=== PATIENT | female | born 1935 | race Caucasian/White ===

== ENCOUNTER 2022-03-01 08:00 | Inpatient (IN) ==
[2022-03-01] MEDS ORDERED: FUROSEMIDE 40 MG/4 ML VIAL IV ONE (08:29)
[2022-03-01 08:56] LABS: POC Calcium, Ionized 1.16 (1.16-1.32); POC Creatinine 1.1 (0.6-1.2); POC Potassium 3.3 (3.3-5.1)
[2022-03-01] MEDS ORDERED: IBUPROFEN 200 MG TABLET PO ONE (09:01)
[2022-03-01 09:23] LABS: Basophils # (Auto) 0.08 K/mcL (0.00-0.30); Basophils % (Auto) 1.5 % (0.0-2.0); Eosinophils # (Auto) 0.31 K/mcL (0.00-0.70); Eosinophils % (Auto) 5.6 % (0.0-7.0); Hematocrit 32.1 % (34.1-44.9); Hemoglobin 10.2 g/dL (11.2-15.7); Lymphocytes # (Auto) 1.85 K/mcL (1.50-4.80); Lymphocytes % (Auto) 33.7 % (15.5-49.0); Mean Cell Volume 105.9 fL (80.0-100.0); Mean Corpuscular HGB Conc 31.8 g/dL (31.0-36.0); Mean Platelet Volume 12.2 fL (7.4-10.4); Monocytes # (Auto) 0.87 K/mcL (0.10-0.90); Monocytes % (Auto) 15.8 % (1.0-12.0); Platelet Count 163 K/mcL (140-440); RBC 3.03 M/mcL (3.59-5.38); Red Cell Distribution Width 14.1 % (11.5-14.5); WBC 5.5 K/mcL (4.5-11.0)
--- NOTE | 2022-03-01 09:28 | Emergency Department Note ---
HPI General Chief complaint: Shortness of Breath/Dyspnea Stated complaint: SOB/fluid retention Time Seen by Provider: 03/01/22 08:02 Source: patient Mode of arrival: wheelchair Limitations: no limitations History of Present Illness HPI Narrative: Narrative: Patient presents to the emergency department with chief complaint of lower extremity edema, dyspnea on exertion, fatigue and orthopnea having difficulty sleeping. Patient does have a history of congestive heart failure, coronary artery disease status post CABG several years ago, afib on xarelto. Patient was seen in the emergency department a few days ago she was given an extra dose of IV Lasix she followed up with cardiology yesterday and was added torsemide along with outpatient IV Lasix infusions. Patient still continues to decline feeling fatigued and short of breath, headache. Related Data Home Medications Medication Instructions Recorded Confirmed hydralazine 10 mg tablet 10 mg PO BID 10/29/21 02/28/22 rosuvastatin 20 mg tablet (Crestor) 20 mg PO .q week 10/29/21 02/28/22 Previous Rx's Medication Instructions Recorded levothyroxine 75 mcg tablet See Rx Instructions .Route 09/03/21 .COMPLEX #90 tabs amlodipine 10 mg tablet 10 mg PO QDAY #90 tabs 09/16/21 Donut Cushion See Rx Instructions .Route 10/29/21 .COMPLEX #1 pad atenolol 25 mg tablet 25 mg PO QDAY #90 tabs 11/04/21 gabapentin 100 mg capsule 200 mg PO QHS Back pain #60 caps 11/19/21 isosorbide mononitrate 30 mg 30 mg PO DAILY #90 tabs 12/16/21 tablet,extended release 24 hr nitroglycerin 0.4 mg sublingual See Rx Instructions .Route 12/16/21 tablet .COMPLEX #25 tabs rivaroxaban 15 mg tablet (Xarelto) 15 mg PO QPM AFIB #90 tabs 12/16/21 Allergies Allergy/AdvReac Type Severity Reaction Status Date / Time doxazosin Allergy Severe Anaphylaxis Verified 03/01/22 12:06 Penicillins Allergy Severe ANAPHYLAXIS Verified 03/01/22 12:06 Zolpidem [From Ambien] AdvReac Severe Hallucinati Verified 03/01/22 12:06 ng codeine AdvReac Intermediate Nausea Verified 03/01/22 12:06 Review of Systems ROS ROS Narrative: Narrative: All systems ED: reviewed and negative except as stated. [facility] Narrative Patient History Narrative: Narrative: Medical/Surgical/Family History All Active Problems (Updated 03/01/22 @ 13:12 by Duy Nair MD) CHF (congestive heart failure) (Acute) Anemia (Acute) Macrocytosis (Acute) Acute UTI (Acute) Acute exacerbation of CHF (congestive heart failure) (Acute) Mixed urge and stress incontinence (Acute) Female bladder prolapse, acquired (Acute) Chronic dyspnea (Chronic) Acute pain of left lower extremity (Acute) Viral syndrome (Acute) Acute bronchitis, viral (Acute) Hx of CABG (Acute) Bursitis of right hip (Acute) Bursitis of both hips (Acute) Radiculopathy, lumbar region (Acute) Muscle spasm (Chronic) Lumbar back pain with radiculopathy affecting right lower extremity (Chronic) SOB (shortness of breath) (Chronic) 1st degree AV block (Chronic) AF (atrial fibrillation) (Chronic) H/O acute pancreatitis (Chronic) Hypothyroidism, unspecified (Chronic) Essential (primary) hypertension (Chronic) Sciatica of right side (Chronic) Medication management (Chronic) Fatigue (Chronic) Atrial fibrillation (Chronic) Thoracic back pain (Chronic) Bradycardia (Chronic) CHF (congestive heart failure) (Chronic) History of pancreatitis (Chronic) Hypertension (Chronic) Hypothyroidism (Chronic) Arthritis (Chronic) Bilateral hip pain (Chronic) Gallbladder problem (Chronic) CAD (coronary artery disease) (Chronic) Low back pain (Chronic) Osteoporosis (Chronic) Compression fracture (Chronic) Heart disease (Chronic) Medical History 1st degree AV block AF (atrial fibrillation) Arthritis Atrial fibrillation Bilateral hip pain Bradycardia Bursitis of right hip CAD (coronary artery disease) CHF (congestive heart failure) Compression fracture Essential (primary) hypertension Fatigue First degree AV block Gallbladder problem H/O acute pancreatitis Heart disease History of pancreatitis Hypertension Hypothyroidism Low back pain Lumbar back pain with radiculopathy affecting right lower extremity Improved -03/05/21 Deteriorated 10/29/21 ( onset worsening 08/2021 ER visit) Medication management Muscle spasm Osteoporosis Sciatica of right side SOB (shortness of breath) Thoracic back pain Viral syndrome Surgical History History of bilateral carpal tunnel release (~1986) History of colonoscopy (~2010) History of coronary artery bypass graft x 3 (~2009) History of surgery Vertebroplasty L1 w/sed 08/15/2019 History of tonsillectomy History of total abdominal hysterectomy Family History Mother Colon cancer Sister Dementia Unknown Autoimmune disease Family/Other Hypertension children Migraines children Stroke children Family history of thyroid problem children Other Cancer Heart attack Social History Smoking Status: Never smoker Alcohol Intake Frequency: does not drink Substance Use: does not use Exam Narrative Narrative: Narrative: Vital signs noted General: Awake. Alert. No distress. HEENT: NCAT PERRL EOMI. No conjunctivitis. Membranes moist. Neck: Supple, trachea midline Cardiovascular: Irregularly irregular no murmur. No rubs. No gallops. Respiratory: Slightly tachypneic difficulty speak in full sentences, diminished breath sounds in the bases Gastrointestinal: Soft. No tenderness Musculoskeletal: 2+ pitting edema to the bilateral lower extremities up to the knee Skin: Warm. Dry. No rash Neurologic: Alert and oriented x3 moves all extremities equally and fully, spe ech is fluent face is symmetric General Limitations: no limitations Course Vital Signs Vital signs: Vital Signs Temperature 97.9 F 03/01/22 08:02 Pulse Rate 88 03/01/22 08:02 Respiratory Rate 18 03/01/22 08:02 Blood Pressure 154/57 03/01/22 08:02 Pulse Oximetry (%) 94 03/01/22 08:02 Oxygen Delivery Method 03/01/22 08:02 Temperature 97.5 F 03/01/22 11:55 Pulse Rate 68 03/01/22 11:55 Respiratory Rate 14 03/01/22 11:55 Blood Pressure 153/87 03/01/22 11:55 Pulse Oximetry (%) 94 03/01/22 11:55 Oxygen Delivery Method 03/01/22 11:40 MDM MDM Narrative Medical decision making narrative: Narrative: Patient presents to the emergency department with increased shortness of breath. 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 Patient is not hypoxic she is slightly tachypneic and having difficulty speaking in full sentences. Patient was given 40 mg of IV Lasix. Other differential includes pulmonary embolism however this seems less likely given the patient is on Xarelto and reports that she has been compliant coagulation. Patient is without any acute chest pain her EKG is without findings of acute ischemia and her troponin is reassuring as well. I did speak with Astrid Cervantes who states she ordered IV Lasix infusion, started the patient on torsemide however the patient has failed to improve. She does feel that the patient would likely benefit from inpatient treatment for her congestive heart failure exacerbation. Lab Data Result diagrams: 03/01/22 08:49 Labs: Lab Results 03/01/22 03/01/22 03/01/22 Range/Units 08:49 08:49 08:49 WBC 5.5 (4.5-11.0) K/mcL RBC 3.03 L (3.59-5.38) M/mcL Hgb 10.2 L (11.2-15.7) g/dL Hct 32.1 L (34.1-44.9) % POC Hct (36-48) MCV 105.9 H (80.0-100.0) fL MCH 33.7 (26.0-34.0) pg MCHC 31.8 (31.0-36.0) g/dL RDW 14.1 (11.5-14.5) % Plt Count 163 (140-440) K/mcL MPV 12.2 H (7.4-10.4) fL Immature Gran % (Auto) 0.4 (0.0-0.5) % Neut % (Auto) 43.0 (38.0-78.0) % Lymph % (Auto) 33.7 (15.5-49.0) % [place] % (Auto) 15.8 H (1.0-12.0) % Eos % (Auto) 5.6 (0.0-7.0) % Baso % (Auto) 1.5 (0.0-2.0) % Lymph # (Auto) 1.85 (1.50-4.80) K/mcL [place] # (Auto) 0.87 (0.10-0.90) K/mcL Eos # (Auto) 0.31 (0.00-0.70) K/mcL Baso # (Auto) 0.08 (0.00-0.30) K/mcL Immature Gran # 0.02 (0.00-0.05) K/mcl Absolute Neutrophils 2.36 (1.80-8.00) K/mcL POC Sodium (133-145) POC Potassium (3.3-5.1) POC Chloride (96-108) POC Total CO2 (22-30) POC BUN (6-20) POC Creatinine (0.6-1.2) POC Glucose (70-105) POC WB Ioniz Calcium (1.16-1.32) NT-Pro-B Natriuret Pep 6358.0 H (<450.0) pg/mL TSH 2.84 (0.27-5.01) uIU/mL POC Troponin I (0.02-0.08) 03/01/22 03/01/22 Range/Units 08:51 08:52 WBC (4.5-11.0) K/mcL RBC (3.59-5.38) M/mcL Hgb (11.2-15.7) g/dL Hct (34.1-44.9) % POC Hct 32.0 L (36-48) MCV (80.0-100.0) fL MCH (26.0-34.0) pg MCHC (31.0-36.0) g/dL RDW (11.5-14.5) % Plt Count (140-440) K/mcL MPV (7.4-10.4) fL Immature Gran % (Auto) (0.0-0.5) % Neut % (Auto) (38.0-78.0) % Lymph % (Auto) (15.5-49.0) % [place] % (Auto) (1.0-12.0) % Eos % (Auto) (0.0-7.0) % Baso % (Auto) (0.0-2.0) % Lymph # (Auto) (1.50-4.80) K/mcL [place] # (Auto) (0.10-0.90) K/mcL Eos # (Auto) (0.00-0.70) K/mcL Baso # (Auto) (0.00-0.30) K/mcL Immature Gran # (0.00-0.05) K/mcl Absolute Neutrophils (1.80-8.00) K/mcL POC Sodium 144 (133-145) POC Potassium 3.3 (3.3-5.1) POC Chloride 103 (96-108) POC Total CO2 28.0 (22-30) POC BUN 19 (6-20) POC Creatinine 1.1 (0.6-1.2) POC Glucose 87 (70-105) POC WB Ioniz Calcium 1.16 (1.16-1.32) NT-Pro-B Natriuret Pep (<450.0) pg/mL TSH (0.27-5.01) uIU/mL POC Troponin I 0.01 L (0.02-0.08) EKG Data EKG #1: EKG attestation: Yes I reviewed and interpreted this EKG., Yes There are no EKG findings of acute coronary syndrome and Yes This EKG will be read by broiler supervisor EKG results narrative: Irregular rhythm appears to be atrial fibrillation, no evidence of acute ischemia, there is Q waves in leads III and aVF Discharge Plan Patient/Caregiver Discharge Instructions Pt seen by [employer]/PA only: No Clinical Impression: Acute exacerbation of CHF (congestive heart failure) Patient Disposition: Xfer As Inpt ([facility]) Condition: Fair Discharge Date/Time: 03/01/22 11:40 Discharge Location: [facility] Inpatient
--- NOTE | 2022-03-01 10:38 | Internal Med History&Physical ---
HPI History of Present Illness Patient information: Note initiated : 03/01/22 at 10:24 am Service Date, if different from initiated Date: [] Patient: Kayleigh Guadarrama a 86 y/o F admitted on for SOB/fluid retention. Chief Complaint: [] History of present illness: Ms. Guadarrama is a 86 year old F With history of heart failure atrial fibrillation CAD who presents to the ED with shortness of breath and weakness. Per the patient she had increasing shortness of breath over the past couple weeks but especially the past 4 days, quite bad and she had increased swelling in her legs. She went to the ED several days ago and got IV Lasix but did not seem to help very much and did not put out much urine. He saw cardiology nurse practitioner Astrid Rivas who also gave her IV Lasix but patient did not seem to respond very well to that therapy and thus came back to the ED. Per the daughter her swelling in her legs is a little better but the patient is still quite short of breath. In the ED she had an EKG which showed her A. fib mildly bradycardic. And a troponin that was unremarkable. Denies any chest pain to me. Chest x-ray showed pulmonary edema. Patient has not had an echocardiogram in a couple years and it sounds like she was to get one soon. Patient has a dry cough which occurs off and on at times but nothing particularly new. She is saturating on room air currently at this time does get short of breath with conversation. She was recently on Keflex for a UTI but did not tolerate the Keflex due to GI symptoms. She had diarrhea several times yesterday including last night. Patient does not have any dysuria or urinary complaints at this time. Review of Systems: Pertinent positives as above. Denies headache/fever/chills/nausea/vomiting/chest or abdominal pain. Remaining 10 point review of system reviewed negative PFSH PFSH All Active Problems (Updated 02/27/22 @ 20:22 by Duy Kothari MD) CHF (congestive heart failure) (Acute) Anemia (Acute) Macrocytosis (Acute) Acute UTI (Acute) Mixed urge and stress incontinence (Acute) Female bladder prolapse, acquired (Acute) Chronic dyspnea (Chronic) Acute pain of left lower extremity (Acute) Viral syndrome (Acute) Acute bronchitis, viral (Acute) Hx of CABG (Acute) Bursitis of right hip (Acute) Bursitis of both hips (Acute) Radiculopathy, lumbar region (Acute) Muscle spasm (Chronic) Lumbar back pain with radiculopathy affecting right lower extremity (Chronic) SOB (shortness of breath) (Chronic) 1st degree AV block (Chronic) AF (atrial fibrillation) (Chronic) H/O acute pancreatitis (Chronic) Hypothyroidism, unspecified (Chronic) Essential (primary) hypertension (Chronic) Sciatica of right side (Chronic) Medication management (Chronic) Fatigue (Chronic) Atrial fibrillation (Chronic) Thoracic back pain (Chronic) Bradycardia (Chronic) CHF (congestive heart failure) (Chronic) History of pancreatitis (Chronic) Hypertension (Chronic) Hypothyroidism (Chronic) Arthritis (Chronic) Bilateral hip pain (Chronic) Gallbladder problem (Chronic) CAD (coronary artery disease) (Chronic) Low back pain (Chronic) Osteoporosis (Chronic) Compression fracture (Chronic) Heart disease (Chronic) Medical History 1st degree AV block AF (atrial fibrillation) Arthritis Atrial fibrillation Bilateral hip pain Bradycardia Bursitis of right hip CAD (coronary artery disease) CHF (congestive heart failure) Compression fracture Essential (primary) hypertension Fatigue First degree AV block Gallbladder problem H/O acute pancreatitis Heart disease History of pancreatitis Hypertension Hypothyroidism Low back pain Lumbar back pain with radiculopathy affecting right lower extremity Improved -03/05/21 Deteriorated 10/29/21 ( onset worsening 08/2021 ER visit) Medication management Muscle spasm Osteoporosis Sciatica of right side SOB (shortness of breath) Thoracic back pain Viral syndrome Surgical History History of bilateral carpal tunnel release (~1986) History of colonoscopy (~2010) History of coronary artery bypass graft x 3 (~2009) History of surgery Vertebroplasty L1 w/sed 08/15/2019 History of tonsillectomy History of total abdominal hysterectomy Family History Mother Colon cancer Sister Dementia Unknown Autoimmune disease Family/Other Hypertension children Migraines children Stroke children Family history of thyroid problem children Other Cancer Heart attack Social History household members: alone marital status: physical activity: none smoking status: Never smoker alcohol intake frequency: does not drink substance use type: does not use MEDS/ALLERGIES Home Medications and Allergies Home Medications Medication Instructions Recorded Confirmed Type levothyroxine 75 mcg tablet See Rx Instructions .Route 09/03/21 03/01/22 Rx .COMPLEX #90 tabs amlodipine 10 mg tablet 10 mg PO QDAY #90 tabs 09/16/21 03/01/22 Rx Elena Levy See Rx Instructions .Route 10/29/21 02/28/22 Rx .COMPLEX #1 pad cholecalciferol (vitamin D3) 50 50 mcg PO QDAY 10/29/21 02/28/22 History mcg (2,000 unit) capsule hydralazine 10 mg tablet 10 mg PO BID 10/29/21 02/28/22 History fmljyejy-rgj-xfryi acid 0.4 1 tab PO QDAY 10/29/21 02/28/22 History mg-lycopene 300 mcg-lutein 250 mcg tablet (Centrum Silver) rosuvastatin 20 mg tablet (Crestor) 20 mg PO .q week 10/29/21 02/28/22 History atenolol 25 mg tablet 25 mg PO QDAY #90 tabs 11/04/21 02/28/22 Rx gabapentin 100 mg capsule 200 mg PO QHS Back pain #60 caps 11/19/21 02/28/22 Rx isosorbide mononitrate 30 mg 30 mg PO DAILY #90 tabs 12/16/21 02/28/22 Rx tablet,extended release 24 hr nitroglycerin 0.4 mg sublingual See Rx Instructions .Route 12/16/21 02/28/22 Rx tablet .COMPLEX #25 tabs rivaroxaban 15 mg tablet (Xarelto) 15 mg PO QPM AFIB #90 tabs 12/16/21 02/28/22 Rx estradiol 0.01% (0.1 mg/gram) 0.25 appful vaginal QDAY #42.5 01/08/22 02/28/22 Rx vaginal cream grams cephalexin 500 mg capsule 500 mg PO QID #20 caps 02/27/22 02/28/22 Rx Allergies Allergy/AdvReac Type Severity Reaction Status Date / Time doxazosin Allergy Severe Anaphylaxis Verified 02/28/22 15:40 Penicillins Allergy Severe ANAPHYLAXIS Verified 02/28/22 15:40 Zolpidem [From Ambien] AdvReac Severe Hallucinati Verified 02/28/22 15:40 ng codeine AdvReac Intermediate Nausea Verified 02/28/22 15:40 EXAM Constitutional Vitals: Temp Pulse Resp BP Pulse Ox O2 Del Method 97.9 F 107 H 17 167/58 95 03/01/22 08:02 03/01/22 10:14 03/01/22 10:14 03/01/22 10:02 03/01/22 10:14 03/01/22 08:02 Exam: General: Alert, Awake, No acute Distress Eyes/N/T: EOMI, PERRL, Head/Neck: neck supple, normocephalic atraumatic, JVD CV: RRR, No murmurs, normal s1/s2 Pulm: mild rales b/l, no wheezing Abd: soft, nontender, +BS x4 Ext: no clubbing/cyanosis, RLE no edema but LLE 1+ edema Neuro: Alert, no focal deficits, moves all extremities, CN 2-12 grossly intact, symmetrical strength b/l upper/lower, sensations intact b/l upper/lower Skin: warm/dry DATA Data Completed and Pending Labs: Labs from last 24 hours 03/01/22 03/01/22 03/01/22 08:52 08:51 08:49 WBC RBC Hgb Hct POC Hct 32.0 L MCV MCH MCHC RDW Plt Count MPV Immature Gran % (Auto) Neut % (Auto) Lymph % (Auto) [place] % (Auto) Eos % (Auto) Baso % (Auto) Lymph # (Auto) [place] # (Auto) Eos # (Auto) Baso # (Auto) Immature Gran # Absolute Neutrophils POC Sodium 144 POC Potassium 3.3 POC Chloride 103 POC Total CO2 28.0 POC BUN 19 POC Creatinine 1.1 POC Glucose 87 POC WB Ioniz Calcium 1.16 NT-Pro-B Natriuret Pep 6358.0 H POC Troponin I 0.01 L 03/01/22 08:49 WBC 5.5 RBC 3.03 L Hgb 10.2 L Hct 32.1 L POC Hct MCV 105.9 H MCH 33.7 MCHC 31.8 RDW 14.1 Plt Count 163 MPV 12.2 H Immature Gran % (Auto) 0.4 Neut % (Auto) 43.0 Lymph % (Auto) 33.7 [place] % (Auto) 15.8 H Eos % (Auto) 5.6 Baso % (Auto) 1.5 Lymph # (Auto) 1.85 [place] # (Auto) 0.87 Eos # (Auto) 0.31 Baso # (Auto) 0.08 Immature Gran # 0.02 Absolute Neutrophils 2.36 POC Sodium POC Potassium POC Chloride POC Total CO2 POC BUN POC Creatinine POC Glucose POC WB Ioniz Calcium NT-Pro-B Natriuret Pep POC Troponin I A/P Narrative A/P Narrative: A: *acute on chronic CHF w/Pulm edema: Failed outpatient therapy - *Afib, chronic: on BB/Lopressor *CAD w/cabg: on BB/xaralto/statin *Hypothyroidism: *Neuropathy: *HTN: on novasc/BB/Hydralazine P: -IV lasix gtt with metolazone -monitor UOP, i/o's -echo pending -check TSH -hold norvasc for edema, cont BB -Continue Imdur/statin - -PT/OT -Home medication reconciliation -f/u with Cardiology outpt -ppx: Xarelto Time Spent With Patient Time: Total time spent is greater than 50% in coordination of care (as documented) at patient's floor/unit and/or counseling patient: Total time spent with greater than 50% in coordination of care (as documented) at patient's floor/unit and/or counseling patient:: 50 - 70 minutes QUALITY Stroke Symptom Onset Unknown: No
[2022-03-01] MEDS ORDERED: IPRATROPIUM/ALBUTEROL 3 ML AMPUL.NEB NEB PRN (11:45)
[2022-03-01] MEDS ORDERED: POTASSIUM CHLORIDE 20 MEQ TABLET PO PRN (11:45)
[2022-03-01] MEDS ORDERED: FUROSEMIDE 250 MG in 0.9 % SODIUM CHLORIDE 225 ML IV SCH (11:45)
[2022-03-01] MEDS ORDERED: ACETAMINOPHEN 325 MG TABLET PO PRN (11:45)
[2022-03-01] MEDS ORDERED: METOPROLOL TARTRATE 5 MG/5 ML VIAL IV PRN (11:45)
[2022-03-01] MEDS ORDERED: MAGNESIUM SULFATE 2 GM/50 ML BAG IV PRN (11:45)
[2022-03-01] MEDS ORDERED: POLYETHYLENE GLYCOL 3350 17 GM PACKET PO PRN (11:45)
[2022-03-01] MEDS ORDERED: POTASSIUM CHLORIDE 40 MEQ in DEXTROSE 5% IN WATER 500 ML IV PRN (11:45)
[2022-03-01] MEDS ORDERED: ONDANSETRON 4 MG/2 ML VIAL IV PRN (11:45)
[2022-03-01] MEDS: 0.9 % SODIUM CHLORIDE 10 ML SYRINGE IV SCH ×2 (12:30→20:28)
[2022-03-01] MEDS: POTASSIUM CHLORIDE 20 MEQ TABLET PO PRN (12:30)
--- NOTE | 2022-03-01 13:41 | XRay Report ---
CLINICAL INFORMATION: Dyspnea COMPARISON: 02/27/2022 TECHNIQUE: Portable FINDINGS: Heart show slight decrease in size now only mildly enlarged. Mediastinum is unremarkable. Pulmonary vessels are returned to near-normal in caliber improvement in interstitial edema. There are small bilateral pleural effusions. IMPRESSION: Mild CHF-improving from exam two days ago Interpreted and Authenticated by: Rashel Jimenez 03/01/22
[2022-03-01] MEDS ORDERED: METOLAZONE 2.5 MG TABLET PO SCH (16:00)
[2022-03-01] MEDS ORDERED: GABAPENTIN 100 MG CAPSULE PO PRN (19:41)
[2022-03-01] MEDS ORDERED: NITROGLYCERIN 0.4 MG TAB.SUBL SL PRN (19:45)
[2022-03-01] MEDS: ISOSORBIDE MONONITRATE 30 MG TAB.XL.24H PO SCH (20:28)
[2022-03-01] MEDS: RIVAROXABAN 15 MG TABLET PO SCH (20:28)
[2022-03-02] MEDS: LABETALOL 5 MG/ML ML IV PRN ×4 (04:19→22:16)
[2022-03-02] MEDS: 0.9 % SODIUM CHLORIDE 10 ML SYRINGE IV SCH ×3 (06:09→21:25)
[2022-03-02 06:37] LABS: Basophils # (Auto) 0.08 K/mcL (0.00-0.30); Basophils % (Auto) 1.4 % (0.0-2.0); Eosinophils # (Auto) 0.37 K/mcL (0.00-0.70); Eosinophils % (Auto) 6.3 % (0.0-7.0); Hematocrit 33.7 % (34.1-44.9); Hemoglobin 10.9 g/dL (11.2-15.7); Lymphocytes # (Auto) 1.83 K/mcL (1.50-4.80); Lymphocytes % (Auto) 31.3 % (15.5-49.0); Mean Cell Volume 106.3 fL (80.0-100.0); Mean Corpuscular HGB Conc 32.3 g/dL (31.0-36.0); Mean Platelet Volume 12.1 fL (7.4-10.4); Monocytes # (Auto) 0.77 K/mcL (0.10-0.90); Monocytes % (Auto) 13.2 % (1.0-12.0); Neutrophils % (Auto) 47.5 % (38.0-78.0); Platelet Count 171 K/mcL (140-440); RBC 3.17 M/mcL (3.59-5.38); WBC 5.9 K/mcL (4.5-11.0)
[2022-03-02 06:57] LABS: ALT/SGPT 10 U/L (<40); AST/SGOT 17 U/L (<32); Albumin 3.3 gm/dL (3.2-5.2); Albumin/Globulin Ratio 1.2 (1.0-2.3); Alkaline Phosphatase 68 U/L (39-117); Bilirubin,Direct < 0.2 mg/dL (0-0.3); Bilirubin,Total 0.4 mg/dL (0.1-1.0); Blood Urea Nitrogen 18 mg/dL (8-23); Calcium 9.1 mg/dL (8.6-10.4); Carbon Dioxide 30 mmol/L (22-30); Chloride 101 mmol/L (96-108); Globulin 2.8 gm/dL (2.2-3.7); Glomerular Filtration Rate 34; Glucose 92 mg/dL (70-105); Lactate Dehydrogenase 259 U/L (135-225); Phosphorous 3.8 mg/dL (2.5-4.5); Triglycerides 74 mg/dL (<150); Uric Acid 10.2 mg/dL (2.5-8.0)
--- NOTE | 2022-03-02 07:58 | Internal Med Progress Note ---
SUBJECTIVE Subjective Patient information: Note initiated : 03/02/22 at 7:52 am Service Date, if different from initiated Date: [] Patient: Kayleigh Guadarrama a 86 y/o F admitted on 03/01/22 for SOB/fluid retention/CHF,Dyspnea,Pulmonary Edema. Chief Complaint: [] Interval history: History of present illness: Ms. Guadarrama is a 86 year old F With history of heart failure atrial fibrillation CAD who presents to the ED with shortness of breath and weakness. Per the patient she had increasing shortness of breath over the past couple weeks but especially the past 4 days, quite bad and she had increased swelling in her legs. She went to the ED several days ago and got IV Lasix but did not seem to help very much and did not put out much urine. He saw cardiology nurse practitioner Astrid Rivas who also gave her IV Lasix but patient did not seem to respond very well to that therapy and thus came back to the ED. Per the daughter her swelling in her legs is a little better but the patient is still quite short of breath. In the ED she had an EKG which showed her A. fib mildly bradycardic. And a troponin that was unremarkable. Denies any chest pain to me. Chest x-ray showed pulmonary edema. Patient has not had an echocardiogram in a couple years and it sounds like she was to get one soon. Patient has a dry cough which occurs off and on at times but nothing particularly new. She is saturating on room air currently at this time does get short of breath with conversation. She was recently on Keflex for a UTI but did not tolerate the Keflex due to GI symptoms. She had diarrhea several times yesterday including last night. Patient does not have any dysuria or urinary complaints at this time. 03/02 Patient says she is tired but breathing better. Urine output 3300 cc since ED. Creatinine bumped and will hold diuresis for now. Potassium mildly low and will replete. Review of Systems: denies headache/fever/chills/nausea/vomiting/chest or abdominal pain/diarrhea. Otherwise see above. Constitutional Vitals: Vital Signs Temp Pulse Resp BP Pulse Ox O2 Del Method O2 Flow Rate 97 F 68 22 163/63 97 1 03/02/22 04:27 03/02/22 04:14 03/02/22 04:14 03/02/22 04:01 03/02/22 04:14 03/02/22 02:02 03/02/22 02:02 Period Temp Pulse Resp BP Sys/Marcus Pulse Ox O2 Del Method O2 Flow Rate Last 24 Hr 97 F-97.9 F 44-107 14-26 127-175/48-130 91-99 Nasal Cannula- Room Air 1-1 Intake and Output 03/01/22 03/02/22 03/02/22 21:59 05:59 13:59 Intake Total 440 48 Output Total 1240 825 115 Balance -800 -777 -115 Weight 54.148 kg Intake & Output: Intake & Output 03/01/22 03/02/22 03/02/22 21:59 05:59 13:59 Intake Total 440 48 Output Total 1240 825 115 Balance -800 -777 -115 Weight 54.148 kg Intake: IV 48 Lasix 250 mg In Sodium Chloride 48 0.9% 225 ml @ 5 MG/HR 5 mls/hr IV Q24H DONA Rx#:[id number] Oral 440 Output: Urine Catheter Amount 1240 825 115 Other: Meal Dinner Percent of Meal Consumed 100% Feeding Ability Independent Urine Appearance Clear Clear Clear Uretheral (Rojas) Clear Urine Color Yellow Pale Pale Pale Uretheral (Rojas) Yellow Pale Urine Odor Normal Exam: General: Alert, Awake, No acute Distress Eyes/N/T: EOMI, Head/Neck: neck supple, CV: RRR, No murmurs, Pulm: minimal subtle basilar rales on right otherwise much improved, no wheezing Abd: soft, nontender, +BS x4 Ext: no clubbing/cyanosis,/edema Neuro: Alert, no focal deficits, moves all extremities, Skin: warm/dry OBJ DATA Labs CBC & Chem 7: 03/02/22 05:51 03/02/22 05:51 Labs: Abnormal Lab Results 03/02/22 03/02/22 03/01/22 05:51 05:51 08:52 RBC 3.17 L Hgb 10.9 L Hct 33.7 L POC Hct 32.0 L MCV 106.3 H MCH 34.4 H MPV 12.1 H [place] % (Auto) 13.2 H Potassium 3.1 L Creatinine 1.4 H Uric Acid 10.2 H Lactate Dehydrogenase 259 H NT-Pro-B Natriuret Pep POC Troponin I 03/01/22 03/01/22 03/01/22 08:51 08:49 08:49 RBC 3.03 L Hgb 10.2 L Hct 32.1 L POC Hct MCV 105.9 H MCH MPV 12.2 H [place] % (Auto) 15.8 H Potassium Creatinine Uric Acid Lactate Dehydrogenase NT-Pro-B Natriuret Pep 6358.0 H POC Troponin I 0.01 L Meds: Medications Acetaminophen (Acetaminophen 325 Mg Tablet) 650 mg PO Q6HP PRN; Protocol PRN Reason: Per Pain Protocol/Fever > 101 Last Admin: 03/01/22 23:08 Dose: 650 mg Albuterol/Ipratropium (Ipratropium/Albuterol 3 Ml Ampul.Neb) 3 ml NEB Q4HP PRN PRN Reason: Shortness Of Breath Atenolol (Atenolol 25 Mg Tablet) 25 mg PO DAILY DONA Atorvastatin Calcium (Atorvastatin 40 Mg Tablet) 40 mg PO .q week DONA Gabapentin (Gabapentin 100 Mg Capsule) 200 mg PO HSP PRN PRN Reason: Back Pain Furosemide 250 mg/ Sodium (Chloride) 250 mls @ 5 mls/hr IV Q24H DONA; Protocol Last Titration: 03/01/22 22:00 Dose: 0 mg/hr, 0 mls/hr Potassium Chloride 40 meq/ (Dextrose) 520 mls @ 130 mls/hr IV UD PRN PRN Reason: Potassium < 3 Magnesium Sulfate (Magnesium Sulfate) 2 gm in 50 mls @ 50 mls/hr IV UD PRN PRN Reason: Magnesium </= 1.6 Isosorbide Mononitrate (Isosorbide Mononitrate 30 Mg Tab.Xl.24h) 30 mg PO HS DONA Last Admin: 03/01/22 20:28 Dose: 30 mg Labetalol HCl (Labetalol 5 Mg/Ml Ml) 0 mg IV Q2HP PRN PRN Reason: Hypertension Last Admin: 03/02/22 04:19 Dose: 10 mg Levothyroxine Sodium (Levothyroxine 75 Mcg Tablet) 75 mcg PO QAM [facility] Metolazone (Metolazone 2.5 Mg Tablet) 5 mg PO 1600 DONA Last Admin: 03/01/22 15:50 Dose: 5 mg Metoprolol Tartrate (Metoprolol Tartrate 5 Mg/5 Ml Vial) 5 mg IV Q2HP PRN PRN Reason: Tachyarrhythmias HR>110 Nitroglycerin (Nitroglycerin 0.4 Mg Tab.Subl) 0.4 mg SL Q5MINP PRN PRN Reason: Chest Pain Ondansetron HCl (Ondansetron 4 Mg/2 Ml Vial) 4 mg IV Q4HP PRN PRN Reason: Nausea And Vomiting Polyethylene Glycol (Polyethylene Glycol 3350 17 Gm Packet) 17 gm PO DAILYP PRN PRN Reason: Constipation Potassium Chloride (Potassium Chloride 20 Meq Tablet) 40 meq PO UD PRN PRN Reason: Potssium is 3-3.5 Last Admin: 03/01/22 12:30 Dose: 40 meq Potassium Chloride (Potassium Chloride 20 Meq Tablet) 40 meq PO UD PRN PRN Reason: Potassium < 3 Rivaroxaban (Rivaroxaban 15 Mg Tablet) 15 mg PO HS DONA Last Admin: 03/01/22 20:28 Dose: 15 mg Sodium Chloride (0.9 % Sodium Chloride 10 Ml Syringe) 10 ml IV Q8 DONA Last Admin: 03/02/22 06:09 Dose: 10 ml A/P Narrative A/P Narrative: A: *acute on chronic CHF w/Pulm edema: Failed outpatient therapy -good UOP *CKD III: bump in Cr, will hold diuresis *Afib, chronic: on BB/Lopressor *CAD w/cabg: on BB/xaralto/statin *Hypothyroidism: tsh wnl *Neuropathy: *HTN: on novasc/BB/Hydralazine P: -hold lasix gtt -monitor UOP, i/o's -echo pending -cont BB -Continue Imdur/statin -PT/OT -f/u with Cardiology outpt -ppx: Xarelto Time Spent With Patient Time: Total time spent is greater than 50% in coordination of care (as documented) at patient's floor/unit and/or counseling patient: Total time spent with greater than 50% in coordination of care (as documented) at patient's floor/unit and/or counseling patient:: 25 - 35 minutes QUALITY Stroke Symptom Onset Unknown: No VTE Deep Vein Thrombosis/Pulmonary Embolism Present on Admission: No
[2022-03-02] MEDS: POTASSIUM CHLORIDE 20 MEQ TABLET PO PRN (08:15)
[2022-03-02] MEDS: hydrALAZINE 10 MG TABLET PO SCH ×2 (08:15→20:57)
[2022-03-02] MEDS: LEVOTHYROXINE 75 MCG TABLET PO SCH (08:15)
[2022-03-02] MEDS: ATENOLOL 25 MG TABLET PO SCH (08:15)
[2022-03-02] MEDS ORDERED: RIVAROXABAN 15 MG TABLET PO SCH (09:00)
[2022-03-02] MEDS ORDERED: ATENOLOL 25 MG TABLET PO SCH (09:00)
--- NOTE | 2022-03-02 09:06 | Discharge Summary ---
Discharge Provider Provider IMPORTANT FOLLOW-UP INFORMATION FOR PCP: Patient information: Note initiated : 03/02/22 at 9:04 am Service Date, if different from initiated Date: [] Patient: Kayleigh Guadarrama 86 y/o F admitted on 03/01/22 for SOB/fluid retention/CHF,Dyspnea,Pulmonary Edema. Chief Complaint: [] Date of admission: 03/01/22 11:40 Discharge date: 03/03/22 Primary care physician: NIKO Spaulding Consults: 03/01/22 Consult to Physician [CONS] Stat Comment: Consulting Provider: Inderjit Castañeda Reason For Exam: Physician to Consult COURSE Hospital Course Hospital course: History of present illness: Ms. Guadarrama is a 86 year old F With history of heart failure atrial fibrillation CAD who presents to the ED with shortness of breath and weakness. Per the patient she had increasing shortness of breath over the past couple weeks but especially the past 4 days, quite bad and she had increased swelling in her legs. She went to the ED several days ago and got IV Lasix but did not seem to help very much and did not put out much urine. He saw cardiology nurse practitioner Astrid Rivas who also gave her IV Lasix but patient did not seem to respond very well to that therapy and thus came back to the ED. Per the daughter her swelling in her legs is a little better but the patient is still quite short of breath. In the ED she had an EKG which showed her A. fib mildly bradycardic. And a troponin that was unremarkable. Denies any chest pain to me. Chest x-ray showed pulmonary edema. Patient has not had an echocardiogram in a couple years and it sounds like she was to get one soon. Patient has a dry cough which occurs off and on at times but nothing particularly new. She is saturating on room air currently at this time does get short of breath with conversation. She was recently on Keflex for a UTI but did not tolerate the Keflex due to GI symptoms. She had diarrhea several times yesterday including last night. Patient does not have any dysuria or urinary complaints at this time. 03/02 Patient says she is tired but breathing better. Urine output 3300 cc since ED. Creatinine bumped and will hold diuresis for now. Potassium mildly low and will replete. 03/03 Patient doing well. Good urine output. Stable for discharge follow closely with cardiology Echo finally back in and reveals a good ejection fraction of 66 5%. Left atrium severely dilated, moderate to severe mitral regurgitation and moderate tricuspid regurgitation. Diastolic dysfunction. A: *acute on chronic diastolic CHF w/Pulm edema & valvular dz (Mod-sev MR/TR): *CKD III: *Afib, chronic: on BB/Lopressor *CAD w/cabg: on BB/xaralto/statin *Hypothyroidism: tsh wnl *Neuropathy: *HTN: on novasc/BB/Hydralazine P: -echo pending -f/u with Cardiology outpt Discharge diagnosis: Acute on chronic CHF Secondary discharge diagnosis: CAD atrial fibrillation hypothyroidism chronic kidney disease neuropathy hypertension Time Spent with Patient Time attestation: Total time spent providing and/or coordinating discharge services: Time spent: Greater than 30 minutes EXAM Constitutional Vitals: Temp Pulse Resp BP Pulse Ox O2 Del Method O2 Flow Rate 97.4 F 66 21 169/75 97 1 03/02/22 08:01 03/02/22 08:01 03/02/22 08:01 03/02/22 08:01 03/02/22 08:01 03/02/22 02:02 03/02/22 02:02 Discharge Data Data Completed and Pending Labs on day of discharge: Labs from last 24 hours 03/02/22 03/02/22 03/01/22 05:51 05:51 08:49 WBC 5.9 RBC 3.17 L Hgb 10.9 L Hct 33.7 L MCV 106.3 H MCH 34.4 H MCHC 32.3 RDW 14.0 Plt Count 171 MPV 12.1 H Immature Gran % (Auto) 0.3 Neut % (Auto) 47.5 Lymph % (Auto) 31.3 [place] % (Auto) 13.2 H Eos % (Auto) 6.3 Baso % (Auto) 1.4 Lymph # (Auto) 1.83 [place] # (Auto) 0.77 Eos # (Auto) 0.37 Baso # (Auto) 0.08 Immature Gran # 0.02 Absolute Neutrophils 2.78 Sodium 142 Potassium 3.1 L Chloride 101 Carbon Dioxide 30 Anion Gap 11.0 BUN 18 Creatinine 1.4 H GFR Calculation 34 Glucose 92 Uric Acid 10.2 H Calcium 9.1 Phosphorus 3.8 Magnesium 2.0 Total Bilirubin 0.4 Direct Bilirubin < 0.2 GGT 10 AST 17 ALT 10 Alkaline Phosphatase 68 Lactate Dehydrogenase 259 H NT-Pro-B Natriuret Pep Total Protein 6.1 Albumin 3.3 Globulin 2.8 Albumin/Globulin Ratio 1.2 Triglycerides 74 TSH 2.84 03/01/22 03/01/22 08:49 08:49 WBC 5.5 RBC 3.03 L Hgb 10.2 L Hct 32.1 L MCV 105.9 H MCH 33.7 MCHC 31.8 RDW 14.1 Plt Count 163 MPV 12.2 H Immature Gran % (Auto) 0.4 Neut % (Auto) 43.0 Lymph % (Auto) 33.7 [place] % (Auto) 15.8 H Eos % (Auto) 5.6 Baso % (Auto) 1.5 Lymph # (Auto) 1.85 [place] # (Auto) 0.87 Eos # (Auto) 0.31 Baso # (Auto) 0.08 Immature Gran # 0.02 Absolute Neutrophils 2.36 Sodium Potassium Chloride Carbon Dioxide Anion Gap BUN Creatinine GFR Calculation Glucose Uric Acid Calcium Phosphorus Magnesium Total Bilirubin Direct Bilirubin GGT AST ALT Alkaline Phosphatase Lactate Dehydrogenase NT-Pro-B Natriuret Pep 6358.0 H Total Protein Albumin Globulin Albumin/Globulin Ratio Triglycerides TSH Discharge Plan Patient/Caregiver Discharge Instructions Activity: increase activity as tolerated Diet: Cardiac Instructions: Heart Failure (GEN), Pulmonary Edema (GEN), Dyspnea (GEN) Activity Restrictions/Additional Instructions: Increase activity as tolerated, continue with a cardiac diet. Take all medications as prescribed. Follow up with your Primary Care Physician as scheduled. This discharge packet is provided to you to help keep you informed about your care. We want to ensure you get everything you need when you go home. You will also be receiving a call from us in a few days to follow up with you and see how you are doing since your discharge. This gives us a chance to listen to any concerns you maybe experiencing since you were discharged or any additional needs you may have, as well as providing us feedback on your care experience. We strive to always provide excellent care and thank you for your feedback and for choosing [facility]. Prescriptions: Continued levothyroxine 75 mcg tablet See Rx Instructions .ROUTE .COMPLEX Qty: 90 3RF Dose Instruction: TAKE 1 TABLET (75 MCG) BY MOUTH EVERY MORNING Rx Instructions: TAKE 1 TABLET (75 MCG) BY MOUTH EVERY MORNING amlodipine 10 mg tablet 10 mg PO QDAY Qty: 90 2RF atenolol 25 mg tablet 25 mg PO QDAY Qty: 90 2RF nitroglycerin 0.4 mg tablet, sublingual See Rx Instructions .ROUTE .COMPLEX Qty: 25 3RF Dose Instruction: DISSOLVE ONE TABLET UNDER TONGUE EVERY 5 TO 15 MINUTES NEEDED FOR CHEST PAIN Rx Instructions: DISSOLVE ONE TABLET UNDER TONGUE EVERY 5 TO 15 MINUTES NEEDED FOR CHEST PAIN rosuvastatin [Crestor] 20 mg tablet 20 mg PO .q week Rx Instructions: Pt takes on Sundays hydralazine 10 mg tablet 10 mg PO BID Donut Cushion See Rx Instructions .ROUTE .COMPLEX Qty: 1 0RF Rx Instructions: USE DAILY WHEN SITTING; isosorbide mononitrate 30 mg tablet extended release 24 hr 30 mg PO HS Rx Instructions: TAKE 1 TABLET BY MOUTH ONCE DAILY EVERY MORNING gabapentin 100 mg capsule 200 mg PO QHS PRN (Reason: Back Pain) Xarelto 15 mg tablet 15 mg PO HS torsemide 10 mg tablet 1 - 2 tab PO QDAY Discontinued cephalexin 500 mg capsule 1 cap PO QID Follow Up Plan Follow up with: Astrid Mcrae ARNP [Nurse Practitioner] - (follow up as needed) Carolina Johnson ARNP [Primary Care Provider] - 03/10/22 3:15 pm Patient Disposition: Home Health Service Prognosis: Fair Overall status at discharge: patient is progressing back to baseline Discharge Orders: Discharge Order (Routine); Ordered 03/03/22 Ordered By: Inderjit Castañeda [facility] VTE Deep Vein Thrombosis/Pulmonary Embolism Present on Admission: No
[2022-03-02] MEDS: ISOSORBIDE MONONITRATE 30 MG TAB.XL.24H PO SCH (20:57)
[2022-03-02] MEDS: RIVAROXABAN 15 MG TABLET PO SCH (20:57)
[2022-03-02] MEDS ORDERED: ATORVASTATIN 40 MG TABLET PO SCH (21:00)
[2022-03-03] MEDS: LABETALOL 5 MG/ML ML IV PRN (02:21)
[2022-03-03] MEDS: 0.9 % SODIUM CHLORIDE 10 ML SYRINGE IV SCH ×2 (05:07→13:30)
[2022-03-03] MEDS: hydrALAZINE 10 MG TABLET PO SCH (07:47)
[2022-03-03] MEDS: LEVOTHYROXINE 75 MCG TABLET PO SCH (07:47)
[2022-03-03] MEDS: ATENOLOL 25 MG TABLET PO SCH (07:47)
--- NOTE | 2022-03-03 19:31 | EKG ---
[facility] Test Date: 2022-03-01 Pat Name: Kayleigh Guadarrama Department: ED Room: Gender: Female Laboratory Tech: : [id number] Requested By: Duy Nair Order Number: [id number] Reading MD: Ranjan Petersen Measurements Intervals [place] Rate: 55 P: 102 WI: 200 QRS: 25 QRSD: 93 T: 175 QT: 439 QTc: 420 Interpretive Statements Atrial flutter Inferior Qs Anteroseptal Qs Lateral ST changes nonspecific Electronically Signed On 03-03-2022 19:31:22 PDT by Ranjan Petersen /[email or web address]/[id number]
== END 2022-03-03 15:30 | disposition home health service (06) | DRG 291 ==
LOC: ED 08:00 → ICU 11:40
PROVIDERS: ADMIT Internal Medicine; ATTEND Internal Medicine